=== PATIENT | female | born 1945 | race Caucasian/White ===

== ENCOUNTER 2020-06-20 09:47 | Emergency (ER) | payer MEDICARE, BC ==
[~2020-06-20] VITALS: Ht 160 cm; Wt 59.9 kg
--- NOTE | 2020-06-20 09:47 | NUR ---
PT BIB SELF C/O ABDOMINAL PAIN AT 0100H. PT IS AAOX4, NOT IN RESPIRATORY DISTRESS, HOOKED TO [employer], KEPT RESTED AND COMFORTABLE. WILL CONTINUE TO MONITOR.
--- NOTE | 2020-06-20 10:02 | NUR ---
URINE SPECIMEN COLLECTED AND SENT TO LAB.
--- NOTE | 2020-06-20 10:04 | NUR ---
AT BEDSIDE FOR EVAL.
--- NOTE | 2020-06-20 10:11 | NUR ---
ER PHLEB AT BEDSIDE FOR BLOOD DRAW.
[2020-06-20 10:15] LABS: BILIRUBIN,URINE SMALL (NEGATIVE); COLOR,URINE YELLOW (YELLOW); LEUKOCYTE ESTERASE ,URINE Negative (NEGATIVE); NITRITE, URINE Negative (NEGATIVE); PH,URINE 6.5 (5.0-8.0); PROTEIN,URINE Trace mg/dl (NEGATIVE); UGLUCOSE Negative (NEGATIVE); UROBILINOGEN,URINE 0.2 EU/dL (0.2)
[2020-06-20 10:24] LABS: BASOPHILS % (AUTO) 0.3 % (0.0-2.0); EOSINOPHILS % (AUTO) 0.1 % (0.0-6.0); HEMATOCRIT 40 % (33-45); HEMOGLOBIN 13.9 g/dL (11.5-14.8); LYMPHOCYTES # (AUTO) 1.5 /CMM (0.8-4.8); LYMPHOCYTES % (AUTO) 27.5 % (20.0-44.0); MEAN CORPUSCULAR HGB CONC 35 g/dl (31.0-36.0); MEAN CORPUSCULAR VOLUME 95 fL (82-100); MONOCYTES # (AUTO) 0.6 /CMM (0.1-1.30); MONOCYTES % (AUTO) 10.7 % (2.0-12.0); NEUTROPHILS # (AUTO) 3.3 /CMM (1.8-8.9); NEUTROPHILS % (AUTO) 61.4 % (43.0-81.0); PLATELET COUNT (AUTO) 240 /CMM (150-450); RED BLOOD CELL COUNT(AUTO) 4.19 MIL/uL (4.0-5.2); WHITE BLOOD COUNT (AUTO) 5.4 K/uL (4.3-11.0)
[2020-06-20 10:30] LABS: BACTERIA,URINE Few /HPF (None Seen); RBC,URINE 0-2 /HPF (0-2); WBC,URINE 0-2 /HPF (0-3)
[2020-06-20] MEDS ORDERED: EVOL140P3 SQ (10:55)
[2020-06-20] MEDS ORDERED: ESTR-3 PO (10:55)
[2020-06-20] MEDS ORDERED: PROP60TA6 PO (10:55)
[2020-06-20] MEDS ORDERED: ESCI10TA PO (10:55)
[2020-06-20] MEDS ORDERED: CYAN10006 IM (10:55)
[2020-06-20] MEDS ORDERED: PRIM250T8 PO (10:55)
[2020-06-20] MEDS ORDERED: MAGN500T2 PO (10:55)
[2020-06-20] MEDS ORDERED: BENA20TA9 PO (10:55)
[2020-06-20] MEDS ORDERED: ERGO500014 PO (10:55)
[2020-06-20] MEDS ORDERED: LEVO100T9 PO (10:55)
[2020-06-20] MEDS ORDERED: ASPI-1420 PO (10:56)
[2020-06-20 11:10] LABS: ALBUMIN 3.9 g/dL (3.4-5.0); BILIRUBIN,DIRECT 0.7 mg/dL (0.0-0.2); BILIRUBIN,TOTAL 1.2 mg/dL (0.2-1.0); CALCIUM, SERUM 8.7 mg/dL (8.5-10.1); CREATININE 0.8 mg/dL (0.6-1.3); POTASSIUM 4.6 mmol/L (3.5-5.1); TOTAL PROTEIN, SERUM 7.7 g/dL (6.4-8.2)
--- NOTE | 2020-06-20 11:27 | NUR ---
TECH AT BEDSIDE FOR ULTRASOUND
[2020-06-20 11:49] VITALS: BP 121/81
--- NOTE | 2020-06-20 11:49 | NUR ---
Patient discharged to home in stable condition. Written and verbal after care instructions given. Patient verbalizes understanding of instruction.
== END 2020-06-20 11:54 | disposition home or self-care (01) ==
LOC: ER 09:55
DX: K80.50 Calculus of bile duct without cholangitis or cholecystitis without obstruction (principal); R11.2 Nausea with vomiting, unspecified; Z79.82 Long term (current) use of aspirin; Z79.899 Other long term (current) drug therapy
CPT/HCPCS: 36415; 76705-TC; 80048-TC; 80076-TC; 81001; 83690-TC; 85025-TC